=== PATIENT | female | born 1975 | race Caucasian/White ===

== ENCOUNTER 2021-02-28 10:15 | Outpatient (REF) | payer OTHER, SELFPAY ==
[2021-03-02 22:36] LABS: HPV mRNA E6/E7 rflx Not Detected (Not Detected)
== END 2021-02-28 10:16 | disposition home or self-care (01) ==
LOC: HO.LAB 10:15
PROVIDERS: PCP Internal Medicine; Visit Provider Advanced Practice Midwife
DX: Z01.419 Encounter for gynecological examination (general) (routine) without abnormal findings (principal); Z11.51 Encounter for screening for human papillomavirus (HPV)
CPT/HCPCS: 87624; 88142

== ENCOUNTER 2021-03-02 13:34 | Outpatient (REF) | payer OTHER, SELFPAY ==
--- NOTE | 2021-03-03 13:45 | MHC.AU.AHA ---
Adult Audiological Evaluation Date of Visit: 03/02/21 Reason for Appointment: History of childhood-onset asymmetrical mixed hearing loss. Patient arrives today to determine if there has been a change in hearing. Previous Hearing Test Results: From [facility] on 09/17/2017- Moderately-severe/severe mixed hearing loss in the right ear. Profound mixed hearing loss in the left ear. 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 Hearing Instrument History- Left Ear: Hydraulic Boom Operator: Schedulize Model: [employer] Serial Number: [id number] Battery Size: 13 Warranty: 10/17/2020 Loss and Damage Warranty: Dispensed By: [facility] Otoscopy: Right Ear: Dull tympanic membrane Left Ear: Dull tympanic membrane, slight redness Tympanometry: Tympanometry performed due to: To assess integrity of the middle ear system Right Ear: Reduced Middle Ear Compliance (Type As) Left Ear: Normal Middle Ear System (Type A) Hearing Evaluation: Transducer(s) Used: Insert Earphones Method: Conventional Audiometry Stimuli Used: Pure Tones Right Ear: Description of Hearing: Moderately-severe/severe mixed hearing loss Left Ear: Description of Hearing: Profound mixed hearing loss Speech Recognition Threshold (SRT): Method Used: Recorded Lists Stimuli Used: Spondee Words Right Ear: 60 dBHL Left Ear: 90 dBHL Word Discrimination: Method: Recorded Lists Word Lists Used: W-22 Right Ear: 96% at 95 dBHL Left Ear: 56% at 105 dBHL Most Comfortable Level (MCL): Right Ear: 95 dBHL Left Ear: 105 dBHL Comparison: Compared to most recent evaluation: Slight decreases noted in the right ear. High frequencies decreased in the left ear. Recommendations: Audiological re-evaluation in one year. Hearing aid maintenance performed. Patient was reporting significant feedback, which was audible when she arrived to the appointment. [place] were loose. Replaced hooks. Cleaned molds and replaced tubing. Cleaned battery compartments and microphones. Hearing aids are amplifying well after maintenance, and feedback was significantly improved. Hearing aid programming was updated with today's thresholds. Feedback manager of business run. Overall gain in the left ear slightly reduced to prevent feedback. Patient was pleased with the changes. Hearing aid maintenance/follow-up as needed. Diagnosis: Primary Diagnosis: H90.6 Mixed Hearing Loss, Bilateral Secondary Diagnosis: H90.6 Mixed Hearing Loss, Bilateral Signature: Provider: Violet Neff, CCC-A
== END 2021-03-02 13:35 | disposition home or self-care (01) ==
LOC: HO.SH 13:34
PROVIDERS: Visit Provider Internal Medicine
DX: H90.6 Mixed conductive and sensorineural hearing loss, bilateral (principal)
CPT/HCPCS: 92557; 92567

== ENCOUNTER 2021-05-01 14:06 | Outpatient (REF) | payer OTHER, SELFPAY ==
--- NOTE | ~2021-05-01 | MM_ITS ---
EXAMINATION: MM SCREENING DIGITAL BREAST TOMOSYNTHESIS, BILATERAL CLINICAL INFORMATION: Screening. Asymptomatic. The lifetime risk of breast cancer based on the Tyrer-Cuzick Model is 18%. COMPARISON: Outside mammography: 09/08/2018, 05/28/2016, 05/02/2016 ([facility]). TECHNIQUE: Digital breast tomosynthesis is performed in both the craniocaudal and mediolateral oblique views along with computer-aided detection (CAD). Synthesized 2D images are generated from the tomosynthesis. Additional right MLO view is provided. FINDINGS: The breasts are heterogeneously dense, which may obscure small masses (ACR BI-RADS breast composition Category c). Parenchymal pattern is similar to prior studies. There is no developing density or interval mass or architectural abnormality. Again, there is biopsy clip marker mid upper outer right breast. There are some coarse and a few punctate calcifications again seen anterior central 3:00 right breast. The axilla and skin contours are unremarkable. No significant changes. MM/MM tomosynthesis screening BI IMPRESSION: No mammographic evidence of malignancy. ASSESSMENT: BI-RADS 2: Benign RECOMMENDATION: Routine annual mammography screening. This patient's information was entered into a reminder system with a target due date for their next mammogram.
== END 2021-05-01 14:07 | disposition home or self-care (01) ==
LOC: HO.MAMMO 14:06
PROVIDERS: PCP Internal Medicine; Visit Provider Obstetrics & Gynecology
DX: Z12.31 Encounter for screening mammogram for malignant neoplasm of breast (principal)
CPT/HCPCS: 77063; 77067

== ENCOUNTER 2021-05-16 10:46 | Outpatient (REF) | payer OTHER, SELFPAY ==
[2021-05-19 00:36] LABS: HPV mRNA E6/E7 rflx Not Detected (Not Detected)
== END 2021-05-16 10:47 | disposition home or self-care (01) ==
LOC: HO.LAB 10:46
PROVIDERS: PCP Internal Medicine; Visit Provider Advanced Practice Midwife
DX: Z12.4 Encounter for screening for malignant neoplasm of cervix (principal); Z11.51 Encounter for screening for human papillomavirus (HPV); R87.615 Unsatisfactory cytologic smear of cervix
CPT/HCPCS: 87624; 88142; 99212

== ENCOUNTER 2022-05-02 14:02 | Outpatient (REF) | payer OTHER, SELFPAY ==
--- NOTE | ~2022-05-02 | MM_ITS ---
EXAMINATION: MM SCREENING DIGITAL BREAST TOMOSYNTHESIS, BILATERAL CLINICAL INFORMATION: Screening. Asymptomatic. The lifetime risk of breast cancer based on the Tyrer-Cuzick Model is 17%. COMPARISON: Mammography: 05/01/2021; outside mammography 09/08/2018, 05/02/2016 ([facility]) TECHNIQUE: Digital breast tomosynthesis is performed in both the craniocaudal and mediolateral oblique views along with computer-aided detection (CAD). Synthesized 2D images are generated from the tomosynthesis. FINDINGS: The breasts are heterogeneously dense, which may obscure small masses (ACR BI-RADS breast composition Category c). There are no significant masses, abnormal calcifications, or other abnormalities. Parenchymal pattern is similar to prior studies. There is no developing density or architectural abnormality. There is a biopsy clip marker upper outer quadrant right breast again noted. Calcifications anterior central 3:00 right breast are similar to prior exams. The axilla and skin contours are unremarkable. No significant changes. MM/MM tomosynthesis screening BI IMPRESSION: No mammographic evidence of malignancy. ASSESSMENT: BI-RADS 2: Benign RECOMMENDATION: Routine annual mammography screening. This patient's information was entered into a reminder system with a target due date for their next mammogram.
== END 2022-05-02 14:03 | disposition home or self-care (01) ==
LOC: HO.MAMMO 14:02
PROVIDERS: PCP Internal Medicine; Visit Provider Obstetrics & Gynecology
DX: Z12.31 Encounter for screening mammogram for malignant neoplasm of breast (principal)
CPT/HCPCS: 77063; 77067

== ENCOUNTER 2023-03-08 10:32 | Outpatient (AMB) | payer OTHER, SELFPAY ==
--- NOTE | 2023-03-08 10:36 | MHC.OFFVIS ---
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 Scribed for YOKASTA Davis by Caty Tapia medical physics professor, on 03/08/2023 at 10:51 am EST. Store Operations Associate Required: No Information Interpreted: non-clinical & clinical Optical Engineering Manager: Optical Engineering Manager Present (Keshia LEVY) Accompanied by: Self / Same As Patient Allergies codeine Allergy (Intermediate, Verified 03/08/23 10:41) Vomiting fentanyl Allergy (Intermediate, Verified 03/08/23 10:41) Vomiting Sulfa (Sulfonamide Antibiotics) Allergy (Intermediate, Verified 03/08/23 10:41) Shakiness Is last menstrual period known: Yes Last menstrual period: 02/20/23 HPI HPI Comments History of Present Illness Details She is a premenopausal woman presenting for annual exam. Reports painful menses and itching under breast. She admits to eating healthy, adding more fiber with fresh vegtables this summer, and tries to stay active with exercise in her home. Not sexually active. Denies vaginal itching and irritation. Denies family hx of colon cancer. Has not done BRCA testing and is interested in testing. Last pap smear 05/17/21. Last mammogram 02/20/23. 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 Sexual orientation: Straight/Heterosexual Gender identity: Female Female Reproductive History Menstrual Age of Menarche: 11 Duration of menses: 6-7 days Date of last menstrual period: 02/20/23 Total pregnancies: 0 Date of last pap smear: 05/17/21 Date of Mammogram: 05/02/22 Physical Exam Vital Signs: Last Vital Signs BP 110/62 03/08/23 10:40 BMI result Body Mass Index 20.8 Const General: cooperative, healthy appearing, no acute distress, well developed and alert Orientation/consciousness: patient oriented x3 HEENT Head: Yes normal to inspection Eyes General: appearance normal, both eyes and all related structures Neck Neck: Yes normal visual inspection Thyroid: Thyroid normal Chest Other: bilateral fungal rash under pendulous breast Chest palpation & inspection: normal inspection of the chest Breast/axilla inspection: normal inspection of the breasts (no puckering, dimpling, peau de orange, retraction, discharge, masses) Breast/axilla palpation: normal palpation of the breasts Resp Effort & Inspection: normal respiratory effort GI Inspection: Yes normal to inspection Palpation (GI): Soft to palpation (to palpation) and Other GI palpation findings present (rounded, bloated) Rectal Exam - Female: deferred Other: thin speculum required General: Yes bladder normal to inspection External Female Exam: normal external appearance and normal appearance of the urethra Speculum Exam - Vagina: normal appearance of the vagina, normal palpation, normal vaginal discharge and other (narrow introitus) Speculum Exam - Cervix: normal appearance of the cervix and normal palpation Bimanual exam- vagina & uterus: normal palpation and normal palpation Bimanual Exam- Adnexa, other: normal adnexae and no masses Skin General skin exam: no rashes or lesions noted Neuro General: patient oriented x3 Cognition (Neuro): normal cognition Extrem General: Yes normal to inspection Psych Attitude: cooperative Thought process: Normal thought process present Assessment & Plan Assessment & Plan (1) Encounter for annual routine gynecological examination: Code(s): Z01.419 - Encounter for gynecological examination (general) (routine) without abnormal findings Plan: Discussed: Current recommendations for pap smears per ASCCP guidelines Breast awareness and periodic self breast exams. Referral for BRCA testing-many family members with cancer, requests testing/information. Maintaining a healthy lifestyle including a well balanced diet and routine exercise. Counseled re: perimenopause vs menopause. Monitor periods, report any unscheduled bleeding, bleeding episodes less than 21 days apart or heavy prolonged menstrual bleeding. All of her questions and concerns were addressed to the best of my ability. RTO in one year for AG. (2) Skin rash: Code(s): R21 - Rash and other nonspecific skin eruption Plan: Keep under breast dry and wear cotton bra. Rx sent to pharmacy. (3) Dysmenorrhea: Code(s): N94.6 - Dysmenorrhea, unspecified Plan: Pelvic US ordered. Follow up via tele visit for results. If experience bloating unusual bleeding or pelvic pain contact office or report to ED. (4) FH: breast cancer: Code(s): Z80.3 - Family history of malignant neoplasm of breast (5) FH: ovarian cancer in first degree relative: Code(s): Z80.41 - Family history of malignant neoplasm of ovary Orders: Orders MM tomosynthesis screening BI Today Z12.31 - Encounter for screening mammogram for malignant neoplasm of breast US pelvic complete Today N94.6 - Dysmenorrhea, unspecified Referrals Genetics Referral Z80.3 - Family history of malignant neoplasm of breast, Z80.41 - Family history of malignant neoplasm of ovary Medications: New clotrimazole-betamethasone 1-0.05 % stop the hydrocortisone use, then start this med as directed 1 appl topical BID 45 grams 0RF itching 7 days Coding Level of Care Code Est Pt Prev Care 40-64y(77986) Diagnoses Encounter for annual routine gynecological examination Z01.419 Skin rash R21 Dysmenorrhea N94.6 FH: breast cancer Z80.3 FH: ovarian cancer in first degree relative Z80.41
[2023-03-08 10:40] VITALS: BP 110/62; BMI 20.8
== END 2023-03-08 11:21 | disposition home or self-care (01) ==
LOC: HO.HWS 10:32
PROVIDERS: PCP Internal Medicine; Visit Provider Advanced Practice Midwife
DX: Z01.419 Encounter for gynecological examination (general) (routine) without abnormal findings (principal); R21 Rash and other nonspecific skin eruption; N94.6 Dysmenorrhea, unspecified; Z80.3 Family history of malignant neoplasm of breast; Z80.41 Family history of malignant neoplasm of ovary
CPT/HCPCS: 99396

== ENCOUNTER → 2023-03-08 10:32 | Outpatient (BNVA) | payer OTHER, SELFPAY | PROVIDERS: PCP Internal Medicine; Visit Provider Advanced Practice Midwife ==

== ENCOUNTER 2023-03-15 10:38 | Outpatient (REF) | payer OTHER, SELFPAY ==
--- NOTE | ~2023-03-15 | US_ITS ---
EXAMINATION: US PELVIS CLINICAL INFORMATION: Dysmenorrhea, last menstrual period 03/14/2023. COMPARISON: None available. TECHNIQUE: Ultrasound of the pelvis is performed using both transabdominal and transvaginal transducers along with Doppler. Patient declined transvaginal ultrasound imaging. Transvaginal ultrasound images should be considered for better visualization based on the clinical assessment. FINDINGS: Uterus: The uterus is anteverted and measures 5.9 x 2.8 x 5.2 cm. No discrete fibroids are identified. Uterus is heterogeneous. Limited visualization. The double wall endometrial thickness is 0.3 mm. No significant free fluid. Right ovary measures 3.0 x 1.9 x 2.5 cm, volume 7.4 mL. Left ovary measures 3.1 x 1.4 x 2.1 cm, volume 4.8 mL. Visualization of bilateral ovaries is limited. US/US pelvic complete IMPRESSION: 1. Heterogeneous uterus. No discrete fibroids. 2. Endometrial thickness is 0.3 cm. 3. Bilateral ovaries are grossly unremarkable. 4. Limited visualization. Patient declined transvaginal ultrasound imaging. Transvaginal ultrasound images should be considered for better visualization based on the clinical assessment.
== END 2023-03-15 10:39 | disposition home or self-care (01) ==
LOC: HO.US 10:38
PROVIDERS: PCP Internal Medicine; Visit Provider Advanced Practice Midwife
DX: N94.6 Dysmenorrhea, unspecified (principal)
CPT/HCPCS: 76856

== ENCOUNTER 2023-03-20 12:37 | Outpatient (AMB) | payer OTHER, SELFPAY ==
--- NOTE | 2023-03-20 12:38 | A.OFFVIS_ITS ---
Intake Intake Visit Reasons: Tv ultra sound follow up Intake Note: Home # [phone] The patient agreed to use of a health care / medical job titles during this encounter. Scribed for YOKASTA Davis by Caty Tapia health care / medical job titles, on 03/20/2023 at 12:50 pm EST. Allergies codeine Allergy (Intermediate, Verified 03/20/23 12:38) Vomiting fentanyl Allergy (Intermediate, Verified 03/20/23 12:38) Vomiting Sulfa (Sulfonamide Antibiotics) Allergy (Intermediate, Verified 03/20/23 12:38) Shakiness HPI HPI Comments History of Present Illness Details Telehealth visit 12:50 pm -12:54 pm. Phone Call due to Covid-19 Pandemic. She presents via phone to discuss US results regarding dysmenorrhea. She has no questions or concerns today. 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 US PELVIS CLINICAL INFORMATION:? Dysmenorrhea, last menstrual period 03/14/2023. COMPARISON: None available. TECHNIQUE: Ultrasound of the pelvis is performed using both transabdominal and transvaginal transducers along with Doppler. Patient declined transvaginal ultrasound imaging. Transvaginal ultrasound images should be considered for better visualization based on the clinical assessment. FINDINGS: Uterus: The uterus is anteverted and measures 5.9 x 2.8 x 5.2 cm.? No discrete fibroids are identified. Uterus is heterogeneous. Limited visualization. The double wall endometrial thickness is 0.3 mm.? No significant free fluid. Right ovary measures 3.0 x 1.9 x 2.5 cm, volume 7.4 mL. Left ovary measures 3.1 x 1.4 x 2.1 cm, volume 4.8 mL. Visualization of bilateral ovaries is limited. US/US pelvic complete IMPRESSION: ? 1. Heterogeneous uterus. No discrete fibroids. ? 2. Endometrial thickness is 0.3 cm. ? 3. Bilateral ovaries are grossly unremarkable. ? 4. Limited visualization. Patient declined transvaginal ultrasound imaging. Transvaginal ultrasound images should be considered for better visualization based on the clinical assessment. Assessment & Plan Assessment & Plan (1) Encounter to discuss test results: Code(s): Z71.2 - Person consulting for explanation of examination or test findings Plan: Discussed: Us findings of: 1. Heterogeneous uterus. No discrete fibroids. 2. Endometrial thickness is 0.3 cm. 3. Bilateral ovaries are grossly unremarkable. 4. Limited visualization. Patient declined transvaginal ultrasound imaging. Transvaginal ultrasound images should be considered for better. visualization based on the clinical assessment. All of her questions and concerns were addressed to the best of my ability and shared decision making. She is agreeable to plan of care. RTO PRN. (2) Dysmenorrhea: Code(s): N94.6 - Dysmenorrhea, unspecified Plan: Advised to monitor menses, use heating pad and ibuprofen with food for pain management. Telehealth Telehealth Location of provider rendering services: practice address Location of patient: address on file Patient Identification confirmed using: Name, : Yes Telehealth method: voice only Patient verbally consented to treatment: Yes Patient verbally consented to billing insurance company: Yes Patient informed of any privacy concerns related to visit: Yes Coding Level of Care Code Tele Est Pt Level 3 (94985) Diagnoses Encounter to discuss test results Z71.2 Dysmenorrhea N94.6
== END 2023-03-20 14:57 | disposition home or self-care (01) ==
LOC: HO.HWS 12:37
PROVIDERS: PCP Internal Medicine; Visit Provider Advanced Practice Midwife
DX: Z71.2 Person consulting for explanation of examination or test findings (principal); N94.6 Dysmenorrhea, unspecified
CPT/HCPCS: 99213

== ENCOUNTER → 2023-03-20 12:37 | Outpatient (BNVA) | payer OTHER, SELFPAY | PROVIDERS: PCP Internal Medicine; Visit Provider Advanced Practice Midwife ==

== ENCOUNTER 2023-04-04 11:32 | Outpatient (AMB) | payer OTHER, SELFPAY ==
--- NOTE | 2023-04-04 11:34 | MHC.OFFVIS ---
Intake Intake Visit Reasons: Family history of malignant neoplasm of breast Pediatric Dermatologist Required: No Accompanied by: Self / Same As Patient Allergies codeine Allergy (Intermediate, Verified 04/04/23 11:38) Vomiting fentanyl Allergy (Intermediate, Verified 04/04/23 11:38) Vomiting Sulfa (Sulfonamide Antibiotics) Allergy (Intermediate, Verified 04/04/23 11:38) Shakiness Medication List - Last Reconciled 04/04/23 by Praveen Reddy MD clotrimazole-betamethasone 1-0.05 % 1 appl topical BID 7 days dextroamphetamine-amphetamine 10 mg 1 tab PO DAILY fluoxetine 10 mg PO DAILY ketoconazole 2% appl topical BID PRN ketoconazole 2% topical 2XW HPI Family history of malignant neoplasm of breast HPI Details 47 year old female referred for a family history of ovarian cancer. She states that her mother had ovarian cancer at age of 56. She does not know of any other family member with Cancer. She had menarche at age of 10. She says she still has her periods. She has never been . [facility] Medical History (Updated 04/04/23 @ 11:50 by Praveen Reddy MD) Family history of ovarian cancer Family history of malignant neoplasm of breast Dysmenorrhea Skin rash ADD (attention deficit disorder) Hearing loss History of anxiety Seborrheic dermatitis Surgical History History of mandibular surgery History of placement of ear tubes Family History Mother Ovarian cancer Maternal Aunt History of breast cancer Family/Other History of breast cancer Social History Household Members: None Housing: House Alcohol intake: current Alcohol intake frequency: holidays/special occasions only Patient Tobacco Use Status: Never used Tobacco Current occupational status: disabled 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 Sexual orientation: Straight/Heterosexual Gender identity: Female Female Reproductive History Menstrual Age of Menarche: 11 Review of Systems Const Denies chills and Denies fever(s) Card Denies chest pain, Denies dyspnea and Denies dyspnea on exertion Resp Denies cough, Denies dyspnea and Denies dyspnea on exertion GI Denies hematochezia and Denies change in bowel habits Denies hematuria Musc Denies back pain and Denies limited range of motion Neuro Denies focal weakness and Denies convulsions Psych Denies depression and Denies mood swings Physical Exam Const General: comfortable and no acute distress Orientation/consciousness: patient oriented x3 Neck Neck: Yes no lymphadenopathy Resp Auscultation: clear to auscultation bilaterally Cardio Rhythm: regular rhythm GI Palpation (GI): Soft to palpation, nontender and no guarding Neuro General: patient oriented x3 Assessment & Plan Assessment & Plan (1) Family history of ovarian cancer: Code(s): Z80.41 - Family history of malignant neoplasm of ovary Plan: Her mother had ovarian cancer at age of 56. I explained to the patient the option of proceeding with genetic testing because of this family history. I told her about implications of this test to herself and her family. She says she isn't interested so we will schedule her for genetic testing and genetic counseling. Coding Level of Care Code New Pt Level 3 (86716) Diagnoses Family history of ovarian cancer Z80.41
== END 2023-04-04 12:14 | disposition home or self-care (01) ==
PROVIDERS: PCP Internal Medicine; Referring Provider Advanced Practice Midwife; Visit Provider Surgery
DX: Z80.41 Family history of malignant neoplasm of ovary (principal)
CPT/HCPCS: 99203

== ENCOUNTER → 2023-04-04 11:32 | Outpatient (BNVA) | payer OTHER, SELFPAY | PROVIDERS: PCP Internal Medicine; Referring Provider Advanced Practice Midwife; Visit Provider Surgery | DX: Z80.41 Family history of malignant neoplasm of ovary (principal) | CPT/HCPCS: 99202 ==

== ENCOUNTER → 2023-05-08 11:30 | Outpatient (BNV) | payer OTHER, SELFPAY | PROVIDERS: Absent Provider Advanced Practice Midwife; Visit Provider Radiology Diagnostic Radiology | DX: Z12.31 Encounter for screening mammogram for malignant neoplasm of breast (principal) | CPT/HCPCS: 77063; 77067 ==

== ENCOUNTER 2023-05-08 11:33 | Outpatient (REF) | payer OTHER, SELFPAY ==
--- NOTE | ~2023-05-08 | MM_ITS ---
EXAMINATION: MM SCREENING DIGITAL BREAST TOMOSYNTHESIS, BILATERAL CLINICAL INFORMATION: Screening. Asymptomatic. COMPARISON: Mammography: This study is compared with prior exams dating back to 2016. TECHNIQUE: Digital breast tomosynthesis is performed in both the craniocaudal and mediolateral oblique views along with computer-aided detection (CAD). Synthesized 2D images are generated from the tomosynthesis. FINDINGS: The breasts are heterogeneously dense, which may obscure small masses (ACR BI-RADS breast composition Category c). There are grouped calcifications in the medial aspect of the right breast. These occur in the posterior nipple line at the breasts anterior third in the MLO projection. Additional mammographic imaging magnification is advised. There is a tissue marker present in the upper outer quadrant of the right breast from prior benign percutaneous biopsy. In the left breast, there are no significant masses, abnormal calcifications, or other abnormalities. MM/MM tomosynthesis screening BI IMPRESSION: Grouped calcifications in the right breast warrant additional mammographic imaging magnification. No mammographic signs of malignancy left breast. ASSESSMENT: BI-RADS BI-RADS 0 - Incomplete: Needs additional Imaging. RECOMMENDATION: Additional views of the right breast . Radiology department staff will contact the patient for additional imaging. 1 year F/U This examination should not preclude the clinical evaluation of a suspicious palpable abnormality. This patient's information was entered into a reminder system with a target due date for their next mammogram.
== END 2023-05-08 11:34 | disposition home or self-care (01) ==
LOC: HO.MAMMO 11:33
PROVIDERS: Absent Provider Advanced Practice Midwife; Visit Provider Internal Medicine
DX: Z12.31 Encounter for screening mammogram for malignant neoplasm of breast (principal)
CPT/HCPCS: 77063; 77067

== ENCOUNTER 2023-05-20 11:21 | Outpatient (AMB) | payer OTHER, SELFPAY ==
--- NOTE | 2023-05-20 11:22 | MHC.OFFVIS ---
Intake Vital Signs 05/20/23 11:26 Height 5 ft 1 in Weight 107 lb BMI 20.2 BP 127/73 Blood Pressure Location Rt brachial Position Sitting Pulse 130 H Intake Visit Reasons: genetic test results *HERE* Intake Note: This patient presents for a follow-up for genetic test results. Patient c/o; reports no changes. Emergency Room Doctor Required: No Accompanied by: Aunt Allergies codeine Allergy (Intermediate, Verified 05/20/23 11:27) Vomiting fentanyl Allergy (Intermediate, Verified 05/20/23 11:27) Vomiting Sulfa (Sulfonamide Antibiotics) Allergy (Intermediate, Verified 05/20/23 11:27) Shakiness Medication List - Last Reconciled 05/20/23 by Praveen Reddy MD clotrimazole-betamethasone 1-0.05 % 1 appl topical BID 7 days dextroamphetamine-amphetamine 10 mg 1 tab PO DAILY fluoxetine 10 mg PO DAILY ketoconazole 2% appl topical BID PRN ketoconazole 2% topical 2XW HPI genetic test results *HERE* HPI Details She is here to discuss goals of her myriad genetic testing. She had multiple family members with breast cancer and a mother with ovarian cancer. She has no new complaints at this time. [facility] Medical History Family history of ovarian cancer Family history of malignant neoplasm of breast Dysmenorrhea Skin rash ADD (attention deficit disorder) Hearing loss History of anxiety Seborrheic dermatitis Surgical History History of mandibular surgery History of placement of ear tubes Family History Mother Ovarian cancer Maternal Aunt History of breast cancer Family/Other History of breast cancer Social History Household Members: None Housing: House Alcohol intake: current Alcohol intake frequency: holidays/special occasions only Patient Tobacco Use Status: Never used Tobacco Current occupational status: disabled 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 Sexual orientation: Straight/Heterosexual Gender identity: Female Female Reproductive History Menstrual Age of Menarche: 11 Review of Systems Const Denies chills and Denies fever(s) Card Denies chest pain, Denies dyspnea and Denies dyspnea on exertion Resp Denies cough, Denies dyspnea and Denies dyspnea on exertion GI Denies hematochezia and Denies change in bowel habits Denies hematuria Musc Denies back pain and Denies limited range of motion Neuro Denies focal weakness and Denies convulsions Psych Denies depression and Denies mood swings Physical Exam Const General: comfortable and no acute distress Resp Effort & Inspection: normal respiratory effort Cardio Rate: regular rate GI Palpation (GI): Soft to palpation Assessment & Plan Assessment & Plan (1) Family history of ovarian cancer: Code(s): Z80.41 - Family history of malignant neoplasm of ovary Plan: Had undergone genetic testing with [employer] because of her family history of ovarian cancer as well as breast cancer. Fortunately, this does not show any significant mutation. However, because of her family history, her breast cancer risk score for lifetime risk at 30.4 % because of this elevated lifetime risk, it is recommended that she undergoes breast MRI with contrast as well annually. I am going to schedule this for October,. I will see her in the office thereafter She had a mammogram weeks ago which has not been officially read yet. I am going to review it once the final report is back. (2) Family history of malignant neoplasm of breast: Code(s): Z80.3 - Family history of malignant neoplasm of breast Orders: Orders MR breast BI wo/w con 6 Months Z80.3 - Family history of malignant neoplasm of breast, Z80.41 - Family history of malignant neoplasm of ovary Coding Level of Care Code Est Pt Level 3 (05826) Diagnoses Family history of ovarian cancer Z80.41 Family history of malignant neoplasm of breast Z80.3
[2023-05-20 11:26] VITALS: BP 127/73; PULSE 130; BMI 20.2
== END 2023-05-20 11:34 | disposition home or self-care (01) ==
PROVIDERS: PCP Internal Medicine; Visit Provider Surgery
DX: Z80.41 Family history of malignant neoplasm of ovary (principal); Z80.3 Family history of malignant neoplasm of breast
CPT/HCPCS: 99213

== ENCOUNTER → 2023-05-20 11:21 | Outpatient (BNVA) | payer OTHER, SELFPAY | PROVIDERS: PCP Internal Medicine; Visit Provider Surgery | DX: Z71.2 Person consulting for explanation of examination or test findings (principal); Z80.41 Family history of malignant neoplasm of ovary; Z80.3 Family history of malignant neoplasm of breast | CPT/HCPCS: 99212 ==

== ENCOUNTER → 2023-08-05 10:30 | Outpatient (BNV) | payer OTHER, SELFPAY | PROVIDERS: PCP Internal Medicine; Visit Provider Radiology Diagnostic Radiology | DX: R92.1 Mammographic calcification found on diagnostic imaging of breast (principal) | CPT/HCPCS: 77065 ==

== ENCOUNTER 2023-08-05 10:31 | Outpatient (REF) | payer OTHER, SELFPAY | END 2023-08-05 10:32 | disposition home or self-care (01) | LOC: HO.MAMMO 10:31 | PROVIDERS: PCP Internal Medicine; Visit Provider Advanced Practice Midwife | DX: R92.1 Mammographic calcification found on diagnostic imaging of breast (principal) | CPT/HCPCS: 77065 ==

== ENCOUNTER 2023-08-12 08:31 | Outpatient (AMB) | payer OTHER, SELFPAY ==
--- NOTE | 2023-08-12 08:39 | A.OFFVIS_ITS ---
Intake Vital Signs 08/12/23 08:41 Height 5 ft 1 in Weight 107 lb 6 oz BMI 20.3 BP 139/75 Blood Pressure Location Lt brachial Position Sitting Pulse 85 Intake Visit Reasons: Rt breast calcification Intake Note: Patient is seen in office for biopsy consult following right breast calcifications. Pt c/o: denies any lump, bump, discharge, redness or swelling, no family hx of breast cancer Perianesthesia Manager Required: No Accompanied by: Self / Same As Patient Allergies codeine Allergy (Intermediate, Verified 08/12/23 08:41) Vomiting fentanyl Allergy (Intermediate, Verified 08/12/23 08:41) Vomiting Sulfa (Sulfonamide Antibiotics) Allergy (Intermediate, Verified 08/12/23 08:41) Shakiness Medication List - Last Reconciled 08/12/23 by Praveen Reddy MD clotrimazole-betamethasone 1-0.05 % 1 appl topical BID 7 days dextroamphetamine-amphetamine 10 mg 1 tab PO DAILY fluoxetine 10 mg PO DAILY ketoconazole 2% appl topical BID PRN ketoconazole 2% topical 2XW HPI Rt breast calcification HPI Details 47-year-old female referred for right br east calcifications. She had a screening mammogram last April, showing this grouped calcifications on the right breast. She was brought in for diagnostic mammogram because of this which was done last week. These suspicious calcifications in the right breast were seen again on the 2 anterior 1/3 just superior and inferior to the nipple line. A stereotactic biopsy had therefore been recommended by the radiologist. She otherwise denies any palpable breast masses or any nipple or skin changes. Her menarche was at age of 10. She had never been . She still has her periods. She denies a family history of breast cancer but her mother had a history of ovarian cancer. The patient had Myriad testing last year which did not show any mutations.. She did have a biopsy of a right breast mass about 12 years ago which was benign. [facility] Medical History (Updated 08/12/23 @ 07:26 by Praveen Reddy MD) Breast calcification, right Family history of ovarian cancer Family history of malignant neoplasm of breast Dysmenorrhea Skin rash ADD (attention deficit disorder) Hearing loss History of anxiety Seborrheic dermatitis Surgical History History of mandibular surgery History of placement of ear tubes Family History Mother Ovarian cancer Maternal Aunt History of breast cancer Family/Other History of breast cancer Social History Household Members: None Housing: House Alcohol intake: current Alcohol intake frequency: holidays/special occasions only Patient Tobacco Use Status: Never used Tobacco Current occupational status: disabled 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 Sexual orientation: Straight/Heterosexual Gender identity: Female Female Reproductive History Menstrual Age of Menarche: 11 Review of Systems Const Denies chills and Denies fever(s) Card Denies chest pain, Denies dyspnea and Denies dyspnea on exertion Resp Denies cough, Denies dyspnea and Denies dyspnea on exertion GI Denies hematochezia and Denies change in bowel habits Denies hematuria Musc Denies back pain and Denies limited range of motion Neuro Denies focal weakness and Denies convulsions Psych Denies depression and Denies mood swings Physical Exam Vital Signs: Last Vital Signs Pulse 85 08/12/23 08:41 BP 139/75 08/12/23 08:41 BMI result Body Mass Index 20.3 Const General: comfortable and no acute distress Orientation/consciousness: patient oriented x3 Neck Neck: Yes no lymphadenopathy Chest Other: No palpable breast masses, no nipple or skin changes, no axillary lymphadenopathy. Resp Auscultation: clear to auscultation bilaterally Cardio Rhythm: regular rhythm GI Palpation (GI): Soft to palpation, nontender and no guarding Neuro General: patient oriented x3 Assessment & Plan Assessment & Plan (1) Breast calcification, right: Code(s): R92.1 - Mammographic calcification found on diagnostic imaging of breast Plan: A stereotactic biopsy had been recommended by the radiologist in view of this grouped calcifications on the right breast as described above. I will see her again in the office to discuss the path report next week. She seems to understand the plan well and is comfortable with this. Orders: Orders MM stereotactic biopsy RT Today R92.1 - Mammographic calcification found on diagnostic imaging of breast Coding Level of Care Code Est Pt Level 3 (59955) Diagnoses Breast calcification, right R92.1
[2023-08-12 08:41] VITALS: BP 139/75; PULSE 85; BMI 20.3
== END 2023-08-12 08:54 | disposition home or self-care (01) ==
PROVIDERS: PCP Internal Medicine; Visit Provider Surgery
DX: R92.1 Mammographic calcification found on diagnostic imaging of breast (principal)
CPT/HCPCS: 99213

== ENCOUNTER 2023-08-12 09:28 | Outpatient (REF) | payer OTHER, SELFPAY ==
--- NOTE | ~2023-08-12 | MM_ITS ---
EXAMINATION: STEREOTACTIC TOMOSYNTHESIS-GUIDED VACUUM-ASSISTED BREAST BIOPSY, RIGHT SPECIMEN RADIOGRAPH, RIGHT POST PROCEDURE DIGITAL MAMMOGRAM, RIGHT CLINICAL INFORMATION: Indeterminate grouped calcifications right breast upper inner quadrant, mid to anterior one third, seen on screening exam recommended for stereotactic biopsy.. COMPARISON: 08/05/2023, 05/08/2023. TECHNIQUE/PROCEDURE: Informed consent was obtained from the patient after discussion of the benefits, risks, and alternatives to biopsy today. Patient appeared to understand. Gave opportunity for questions. Patient signed consent form. BIOPSY TABLE: [employer] Prone Biopsy System. LESION: Calcifications. LOCAL ANESTHESIA: 4 mL 1% lidocaine; 6 mL 1% lidocaine with epinephrine. DERMATOTOMY: Single skin jacinda dermatotomy performed. NEEDLE: [employer]5iva 9-gauge vacuum assisted core biopsy device. APPROACH: craniocaudal. TARGETING: Combination of digital breast tomosynthesis and stereotactic digital mammography used for targeting. CORES: 8. CLIP: [employer] Buckle-shaped marker. SPECIMEN RADIOGRAPH: Specimen radiograph is taken in separate room using digital mammography. The index calcifications are in the excised cores. POST PROCEDURE UNILATERAL DIGITAL MAMMOGRAM: The post biopsy mammogram is performed in separate room using separate digital mammography equipment from the biopsy procedure. CC and ML views are obtained. The breasts are heterogeneously dense, which may obscure small masses (breast composition category: c). The clip marker is in accurate position. The calcifications are markedly decreased at the biopsy site. No gross hematoma. The patient tolerated the procedure well. No immediate complications. Home instructions reviewed with the patient. Final pathology results are pending. MM/MM stereotactic biopsy RT IMPRESSION: 1. Digital tomosynthesis-guided core biopsy right breast grouped calcifications with clip placement. 2. Specimen radiograph taken and post procedure mammogram. There is satisfactory and accurate positioning of the biopsy clip. 3. Final pathology results pending. An addendum report will be issued.
[2023-08-12] MEDS: Lidocaine HCl 1 % 20 ML VIAL 4 ML SUBCUT (11:04)
[2023-08-12] MEDS: Lidocaine HCl 1%/Epi 1:100,000 10 ML VIAL 16 ML SUBCUT (11:05)
[2023-08-12] MEDS: Sodium Bicarbonate 8.4% 50 MEQ/50 ML VIAL SUBCUT (11:09)
== END 2023-08-12 09:29 | disposition home or self-care (01) ==
LOC: HO.MAMMO 09:28
PROVIDERS: PCP Internal Medicine; Visit Provider Surgery
DX: R92.1 Mammographic calcification found on diagnostic imaging of breast (principal)
CPT/HCPCS: 19081; 88305; 88342; 88360; 99212; A4648

== ENCOUNTER → 2023-08-12 10:00 | Outpatient (BNV) | payer OTHER, SELFPAY | PROVIDERS: PCP Internal Medicine; Visit Provider Radiology Diagnostic Radiology | DX: D05.11 Intraductal carcinoma in situ of right breast (principal) | CPT/HCPCS: 19081 ==

== ENCOUNTER 2023-08-21 14:13 | Outpatient (AMB) | payer OTHER, SELFPAY ==
--- NOTE | 2023-08-21 14:23 | A.OFFVIS_ITS ---
Intake Vital Signs 08/21/23 14:30 Height 5 ft 1 in Weight 107 lb 5.983 oz BMI 20.3 BP 147/71 H Blood Pressure Location Rt brachial Position Sitting Pulse 98 Intake Visit Reasons: bx results Rt breast calcification Intake Note: This patient presents for an assessment for breast biopsy results. Patient c/o; reports no changes Regional Service Manager Required: No Accompanied by: Self / Same As Patient Allergies codeine Allergy (Intermediate, Verified 08/21/23 14:31) Vomiting fentanyl Allergy (Intermediate, Verified 08/21/23 14:31) Vomiting Sulfa (Sulfonamide Antibiotics) Allergy (Intermediate, Verified 08/21/23 14:31) Shakiness Medication List - Last Reconciled 08/21/23 by Praveen Reddy MD clotrimazole-betamethasone 1-0.05 % 1 appl topical BID 7 days dextroamphetamine-amphetamine 10 mg 1 tab PO DAILY fluoxetine 10 mg PO DAILY ketoconazole 2% appl topical BID PRN ketoconazole 2% topical 2XW HPI bx results Rt breast calcification HPI Details 47-year-old female here to discuss her p ath report . She had undergone stereotactic biopsy for right breast calcifications last week. She tolerated procedure well. She does state that she had a little bit of bruising on the area. She had a screening mammogram last April, showing this grouped calcifications on the right breast. She was brought in for diagnostic mammogram because of this and these suspicious calcifications in the right breast were seen again on the anterior 1/3 just superior and inferior to the nipple line. A stereotactic biopsy was therefore done last week by the radiologist. She otherwise denies any palpable breast masses or any nipple or skin changes. Her menarche was at age of 10. She had never been . She still has her periods. She denies a family history of breast cancer but her mother had a history of ovarian cancer. The patient had Myriad testing last year which did not show any mutations.. She did have a biopsy of a right breast mass about 12 years ago which was benign. COUNTS INCLUDE 234 BEDS AT THE [facility] Medical History (Updated 08/21/23 @ 14:48 by Praveen Reddy MD) DCIS (ductal carcinoma in situ) of breast Breast calcification, right Family history of ovarian cancer Family history of malignant neoplasm of breast Dysmenorrhea Skin rash ADD (attention deficit disorder) Hearing loss History of anxiety Seborrheic dermatitis Surgical History History of mandibular surgery History of placement of ear tubes Family History Mother Ovarian cancer Maternal Aunt History of breast cancer Family/Other History of breast cancer Social History Household Members: None Housing: House Alcohol intake: current Alcohol intake frequency: holidays/special occasions only Patient Tobacco Use Status: Never used Tobacco Current occupational status: disabled Current occupation: [employer] Sexual orientation: Straight/Heterosexual Gender identity: Female Female Reproductive History Menstrual Age of Menarche: 11 Review of Systems Const Denies chills and Denies fever(s) Card Denies chest pain, Denies dyspnea and Denies dyspnea on exertion Resp Denies cough, Denies dyspnea and Denies dyspnea on exertion GI Denies hematochezia and Denies change in bowel habits Denies hematuria Musc Denies back pain and Denies limited range of motion Neuro Denies focal weakness and Denies convulsions Psych Denies depression and Denies mood swings Physical Exam Vital Signs: Last Vital Signs Pulse 98 08/21/23 14:30 BP 147/71 H 08/21/23 14:30 BMI result Body Mass Index 20.3 Const General: comfortable and no acute distress Orientation/consciousness: patient oriented x3 Neck Neck: Yes no lymphadenopathy Chest Other: Mild ecchymosis surrounding the biopsy site on the upper part of right breast Resp Auscultation: clear to auscultation bilaterally Cardio Rhythm: regular rhythm GI Palpation (GI): Soft to palpation, nontender and no guarding Neuro General: patient oriented x3 Assessment & Plan Assessment & Plan (1) DCIS (ductal carcinoma in situ) of breast: Code(s): D05.10 - Intraductal carcinoma in situ of unspecified breast Plan: She had undergone stereotactic biopsy for calcifications on the right breast last week. Unfortunately, her path report shows DCIS, ERPR positive. I explained to her the option of proceeding with lumpectomy with postop radiation, or mastectomy as treatment for DCIS. I discussed the technique of this procedure. I reviewed the risks including but not limited to bleeding, infections, hematoma, as well as the benefits and alternatives She wants to proceed with lumpectomy and understands that she will need postop radiation. I will also refer her to the oncologist for this DCIS. I have discussed the above with her Aunt Prema at [phone]. Orders: Referrals Hematology & Oncology Referral D05.10 - Intraductal carcinoma in situ of unspecified breast Coding Level of Care Code Est Pt Level 4 (29582) Diagnoses DCIS (ductal carcinoma in situ) of breast D05.10
[2023-08-21 14:30] VITALS: BP 147/71; PULSE 98; BMI 20.3
== END 2023-08-21 14:49 | disposition home or self-care (01) ==
PROVIDERS: PCP Internal Medicine; Visit Provider Surgery
DX: D05.10 Intraductal carcinoma in situ of unspecified breast (principal)
CPT/HCPCS: 99214

== ENCOUNTER → 2023-08-21 14:13 | Outpatient (BNVA) | payer OTHER, SELFPAY | PROVIDERS: PCP Internal Medicine; Visit Provider Surgery | DX: D05.10 Intraductal carcinoma in situ of unspecified breast (principal) | CPT/HCPCS: 99212 ==

== ENCOUNTER → 2023-08-26 11:15 | Outpatient (BNV) | payer OTHER, SELFPAY | PROVIDERS: Visit Provider Internal Medicine Medical Oncology | DX: D05.10 Intraductal carcinoma in situ of unspecified breast (principal) | CPT/HCPCS: 99204; 99213 ==

== ENCOUNTER 2023-08-28 08:03 | Outpatient (REF) | payer OTHER, SELFPAY ==
--- NOTE | ~2023-08-28 | MM_ITS ---
EXAMINATION: MM MAMMOGRAM GUIDED RFID LOCALIZATION BREAST, RIGHT CLINICAL INFORMATION: DCIS, grade 1, right breast upper inner quadrant, middle to anterior one third, status post stereotactic biopsy. For localization. COMPARISON: 08/12/2023 stereotactic right breast biopsy. 08/05/2023 magnification views right breast. TECHNIQUE NEEDLE LOC: Proper informed consent is obtained from the patient after discussion of the procedure, potential risks and complications, and alternatives including declining the procedure today. Patient was given an opportunity for questions. The patient appeared to understand. The patient consented to the procedure and signed the consent form. GUIDANCE: Digital mammography. APPROACH: Cranio-caudal. TARGET: Buckle-shaped biopsy clip. ANESTHESIA: carbonated lidocaine 1%: 3 mL. LOCALIZATION SYSTEM: -[employer] LOCallizer Wire-Free Guidance System with 12g needle applicator. -Length: 7 cm. -RADIOFREQUENCY TAG: ID # [id number] DERMATOTOMY: 1 mm skin-jacinda dermatotomy performed. RF Tag ID confirmed with LOCalizer Guidance System prior to placement. The skin was prepped and local anesthesia administered. The needle was accurately positioned and RFID tag deployed. Final images demonstrate the LOCalizer RF tag to reside touching the buckle-shaped biopsy clip in both the CC and ML projections. No definite residual calcifications evident surrounding the clip on these images. The patient tolerated the procedure well and had no immediate complications. Dressing placed and home instructions reviewed. MM/MM needle loc RT IMPRESSION: -Status post right breast RFID localization for DCIS grade 1 inner upper quadrant, mid to anterior one third. -RFID chip is touching the biopsy clip in both views. No definite residual calcifications seen on these limited views. -CC and ML final views with RFID chip deployed labeled for OR reference.
[2023-08-28] MEDS: Lidocaine HCl 1 % 20 ML VIAL 9 ML SUBCUT (09:00)
[2023-08-28] MEDS: Sodium Bicarbonate 8.4% 50 MEQ/50 ML VIAL SUBCUT (09:01)
== END 2023-08-28 08:04 | disposition home or self-care (01) ==
LOC: HO.MAMMO 08:03
PROVIDERS: PCP Internal Medicine; Visit Provider Surgery
DX: D05.11 Intraductal carcinoma in situ of right breast (principal); R92.1 Mammographic calcification found on diagnostic imaging of breast
CPT/HCPCS: 19281; C1819

== ENCOUNTER 2023-09-06 11:12 | Day surgery (SDC) | payer OTHER, SELFPAY ==
[2023-09-04 08:48] VITALS: BMI 20.2
--- NOTE | 2023-09-05 10:11 | P.CONAN_ITS ---
Documented by User: Phoebe Soto NP 09/05/23 10:15 HPI - Anesthesia Eval Consult details Narrative: 47yo F for Right Breast Lumpectomy with [employer]ologic LOCalizer PHMx Mandibular surgery - unable to reach patient by phone for details PMF Active Problems Active Problems: All Active Problems (Updated 08/26/23 @ 11:31 by Gregorio Villegas MD) DCIS (ductal carcinoma in situ) of breast (Acute) Breast calcification, right (Acute) Family history of ovarian cancer (Acute) Family history of malignant neoplasm of breast (Acute) Dysmenorrhea (Acute) Skin rash (Acute) Encounter for repeat Pap smear due to previous insuff cervical cells (Acute) Encounter for annual routine gynecological examination (Acute) Past Medical History Medical History DCIS (ductal carcinoma in situ) of breast Breast calcification, right Family history of ovarian cancer Family history of malignant neoplasm of breast Dysmenorrhea Skin rash ADD (attention deficit disorder) Hearing loss History of anxiety Seborrheic dermatitis Family History Family History Mother Ovarian cancer Maternal Aunt History of breast cancer Family/Other History of breast cancer Surgical History Surgical History History of mandibular surgery History of placement of ear tubes Social History Social History Household Members: None Housing: House Alcohol intake: current Alcohol intake frequency: holidays/special occasions only Patient Tobacco Use Status: Never used Tobacco Are you DNR?: No Advance Directives: No Advance Directives Information Provided: Yes Nutrition Risks: No Nutritional Risk FDLMP: currently menstruate Current occupational status: disabled 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 Sexual orientation: Straight/Heterosexual Gender identity: Female Meds Allergies Allergy/AdvReac Type Severity Reaction Status Date / Time codeine Allergy Intermediate Vomiting Verified 09/06/23 11:41 fentanyl Allergy Intermediate Vomiting Verified 09/06/23 11:41 Sulfa (Sulfonamide Allergy Intermediate Shakiness Verified 09/06/23 11:41 Antibiotics) Home Medications Medication Instructions Recorded Confirmed Last Taken Type dextroamphetamine-amphetamine 10 1 tab PO DAILY 03/02/22 09/06/23 Unknown History mg tablet fluoxetine 10 mg capsule 10 mg PO DAILY 03/02/22 09/06/23 Unknown History ketoconazole 2 % shampoo 2 appl topical 2XW 03/02/22 09/06/23 Unknown History ketoconazole 2 % topical cream 2 appl topical BID 03/02/22 09/06/23 Unknown History emollient combination no.43 0.43 appl topical BID 08/26/23 09/06/23 Unknown History (Promiseb topical cream) Exam Height,Weight and Vital Signs: Height 5 ft 1 in Weight 48.534 kg Pertinent Lab Results Pertinent Lab Results: Laboratory Tests 08/26/23 12:30 WBC 3.7 L Hgb 15.1 Hct 43.5 Plt Count 120 L Sodium 136 Potassium 4.3 Chloride 101 Carbon Dioxide 28 BUN 8 L Creatinine 0.71 Assessment and Plan Assessment Anesthesia Assessment: Chart Reviewed Documented by User: Meseret Morales MD 09/06/23 11:47 PMFSH Past Medical History Medical History DCIS (ductal carcinoma in situ) of breast Breast calcification, right Family history of ovarian cancer Family history of malignant neoplasm of breast Dysmenorrhea Skin rash ADD (attention deficit disorder) Hearing loss History of anxiety Seborrheic dermatitis Family History Family History Mother Ovarian cancer Maternal Aunt History of breast cancer Family/Other History of breast cancer Family history of problems with anesthesia: No Surgical History Surgical History History of mandibular surgery History of placement of ear tubes History of Problems with Anesthesia: No Social History Social History Household Members: None Housing: House Alcohol intake: current Alcohol intake frequency: holidays/special occasions only Patient Tobacco Use Status: Never used Tobacco Are you DNR?: No Advance Directives: No Advance Directives Information Provided: Yes Nutrition Risks: No Nutritional Risk FDLMP: currently menstruate Current occupational status: disabled 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 Sexual orientation: Straight/Heterosexual Gender identity: Female Meds Allergies Allergy/AdvReac Type Severity Reaction Status Date / Time codeine Allergy Intermediate Vomiting Verified 09/06/23 11:41 fentanyl Allergy Intermediate Vomiting Verified 09/06/23 11:41 Sulfa (Sulfonamide Allergy Intermediate Shakiness Verified 09/06/23 11:41 Antibiotics) Home Medications Medication Instructions Recorded Confirmed Last Taken Type dextroamphetamine-amphetamine 10 1 tab PO DAILY 03/02/22 09/06/23 Unknown History mg tablet fluoxetine 10 mg capsule 10 mg PO DAILY 03/02/22 09/06/23 Unknown History ketoconazole 2 % shampoo 2 appl topical 2XW 03/02/22 09/06/23 Unknown History ketoconazole 2 % topical cream 2 appl topical BID 03/02/22 09/06/23 Unknown History emollient combination no.43 0.43 appl topical BID 08/26/23 09/06/23 Unknown History (Promiseb topical cream) Exam Airway Mallampati Class: III TM Dist: >3cm Neck ROM: Full Assessment and Plan Assessment Anesthesia Assessment: Anesthesia Plan Discussed Final Anesthetic Review Family History of Problems with Anesthesia: No History of Problems with Anesthesia: No NPO: Yes ASA Class: II Final Preanesthetic Review: No Changes in Pt Med Stat, Meds/Allgs Chart Reviewed, Consent Obtained/Reviewed and Anes Risks/Benef Reviewed Patient Risk: Intermediate Procedure Risk: Low Anesthetic Plan Anesthetic Plan: GA Disposition: Standard PACU
[2023-09-06] VITALS (8 sets, daily range): BP systolic 107–130; BP diastolic 62–78; PULSE 56–93; RESP 16–18; TEMP 36.6–37.1; O2SAT 97–100; BMI 20.2
--- NOTE | ~2023-09-06 | MM_ITS ---
EXAMINATION: NEEDLE LOCALIZATION SPECIMEN FROM THE RIGHT BREAST CLINICAL INFORMATION: DCIS, grade 1. COMPARISON: Right RFID localization 08/28/2023. Stereotactic biopsy right breast 08/12/2023. TECHNIQUE: Single view of the specimen was obtained. FINDINGS: The radiograph of the excised surgical specimen demonstrates the buckle-shaped biopsy clip immediately abutting the RFID chip within the central aspect of the specimen. A few scattered incredibly faint calcifications are noted throughout the more central specimen, none which approach the specimen margins to any significant degree. MM/MM surgical specimen IMPRESSION: Satisfactory excision of the targeted lesion. These findings were communicated to the surgeon in the OR at the time of specimen radiography.
[2023-09-06 11:36] LABS: UPreg QC Valid YES; Urine Pregnancy NEGATIVE (NEGATIVE)
[2023-09-06] MEDS: Lactated Ringers 1,000 ML 100 ML IVCONT (11:46)
--- NOTE | 2023-09-06 13:24 | MHC.SHP ---
Pre-Procedural Eval Section A - 24 Hr Update-Section A only Date of Service: 09/06/23 The patient is an INPATIENT: No Changes since office visit: No Cold of Flu in the past 2 weeks, No New Medical Problems, No Changes in Medication and No Patient answered all questions The patient has been examined within 24 hours of the surgical procedure. The History & Physical has been completed within 30 days and I have reviewed it.: Yes Section B - Complete if H&P > 30 days Chief Complaint: Intraductal carcinoma in situ of unspecified breas Allergies: Allergies Allergy/AdvReac Type Severity Reaction Status Date / Time codeine Allergy Intermediate Vomiting Verified 09/06/23 11:41 fentanyl Allergy Intermediate Vomiting Verified 09/06/23 11:41 Sulfa (Sulfonamide Allergy Intermediate Shakiness Verified 09/06/23 11:41 Antibiotics) Plan I have reviewed the history and physical and performed a pertinent physical examination on my patient. No changes have occurred unless specified. Time Spent With Patient Time: Total time managing care of this patient today ____ minutes.
--- NOTE | 2023-09-06 15:05 | P.OP_ITS ---
Operative Note Operative Note Date of Service: 09/06/23 Narrative: Preop diagnosis: DCIS, right breast Postop diagnosis: The same Procedure: Lumpectomy, right breast with the Hologic localizer Surgeon: Praveen Reddy MD assistant auto center manager: HUGH Mckinnon The patient is a 47-year-old female with a recently diagnosed DCIS on stereotactic biopsy. She understood the technique of lumpectomy. She understood she will require radiation for the breast to complete treatment. She was aware of the risks, benefits, and alternatives. She was brought to the operating room. She was placed supine under general anesthesia via laryngeal mask airway. The right breast area was prepped and draped in the usual sterile fashion. A surgical time-out was done. The patient received cefazolin 2 g IV preoperatively. The biopsy site was seen on the upper part of the breast. I had used the Hologic localizer and this was exactly where the shortest distance was too the RFID clip. I therefore made an incision along this recent biopsy site using blade 15 after infiltration with lidocaine 1%. This incision was carried down through the full-thickness of the skin and subcutaneous fat with electrocautery. We then deepened the incision, periodically checking the location of the clip Hologic localizer to make sure that we were excising adequate surrounding the clip. We used the curved Faulkner scissors to circumferentially dissect around this area of the clip using the Hologic localizer as a guide. Eventually, we are able to achieve circumferential dissection to separate the entire specimen and delivered this. I marked the central and superior aspects with sutures for orientation I proceeded to do re-ray in the operating room. It was confirmed that the RF ID clip as well as the previous biopsy clip were within the specimen. We sent the specimen for immediate gross exam. I actually reviewed the specimen with the pathologist. It appeared that we had good margins and that there were no other lesions site of the biopsy site. We therefore proceeded to ensure hemostasis. I cauterized all oozing areas. We irrigated. Once hemostasis was confirmed, the deep breast tissues were reapposed with Polysorb 3-0 interrupted sutures. Skin closure was achieved with Polysorb 4-0 subcuticular running stitch The area was infiltrated with Marcaine 0.5% for postop analgesia. Dressings were applied. The procedure was completed The patient tolerated the procedure well. There were no immediate complications. Initial and final counts of sponges and instruments were correct. Estimated blood loss was about 40 cc The patient was extubated without difficulty and transferred to the recovery room with stable vital signs.
== END 2023-09-06 16:30 | disposition home or self-care (01) ==
PROVIDERS: Nurse Practitioner; PCP Internal Medicine; Visit Provider Surgery
PROC: (CPT 19301; principal; 2023-09-06 13:10)
DX: D05.11 Intraductal carcinoma in situ of right breast (principal)
CPT/HCPCS: 19301; 81025; 88307; 88329; J0131; J0690; J1100; J1170; J1596; J1885; J2250; J2405; J2704; J2795; J3010

== ENCOUNTER → 2023-09-06 11:12 | Outpatient (BNV) | payer OTHER, SELFPAY | PROVIDERS: PCP Internal Medicine; Visit Provider Surgery | DX: D05.11 Intraductal carcinoma in situ of right breast (principal) | CPT/HCPCS: 19301 ==

== ENCOUNTER 2023-09-19 10:41 | Outpatient (AMB) | payer OTHER, SELFPAY ==
--- NOTE | 2023-09-19 10:42 | MHC.OFFVIS ---
Intake Vital Signs 09/19/23 10:47 Weight 109 lb BP 111/61 Blood Pressure Location Rt brachial Position Sitting Pulse 82 Intake Visit Reasons: S/P Rt breast lumpectomy w/seed Intake Note: This patient presents for a post-op assessment status post right breast lumpectomy with seed. Patient c/o; reports no complaints at this time. 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 She tolerated the procedure well. She currently denies significant complaints. [facility] Medical History DCIS (ductal carcinoma in situ) of breast Breast calcification, right Family history of ovarian cancer Family history of malignant neoplasm of breast Dysmenorrhea Skin rash ADD (attention deficit disorder) Hearing loss History of anxiety Seborrheic dermatitis Surgical History History of mandibular surgery History of placement of ear tubes Family History Mother Ovarian cancer Maternal Aunt History of breast cancer Family/Other History of breast cancer Social History Household Members: None Housing: House Alcohol intake: current Alcohol intake frequency: holidays/special occasions only Patient Tobacco Use Status: Never used Tobacco Current occupational status: disabled 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 Sexual orientation: Straight/Heterosexual Gender identity: Female Female Reproductive History Menstrual Age of Menarche: 11 Review of Systems Const Denies chills and Denies fever(s) Card Denies chest pain, Denies dyspnea and Denies dyspnea on exertion Resp Denies cough, Denies dyspnea and Denies dyspnea on exertion GI Denies hematochezia and Denies change in bowel habits Denies hematuria Musc Denies back pain and Denies limited range of motion Neuro Denies focal weakness and Denies convulsions Psych Denies depression and Denies mood swings Physical Exam Const General: comfortable and no acute distress Chest Other: Right breast lumpectomy site is well healed, not infected no cellulitis Assessment & Plan Assessment & Plan (1) DCIS (ductal carcinoma in situ) of breast: Code(s): D05.10 - Intraductal carcinoma in situ of unspecified breast Plan: Status post lumpectomy with Hologic localization. Her path report shows DCIS without any invasive component. Margins are adequate. Her incision is well healed. She is to undergo radiation to complete treatment. She is to continue with regular yearly mammograms which she alternates with MRI in between mammograms because of her family history of ovarian cancer.. She was reminded to follow-up with Oncology. I will see her again in the office in about 6 months. Coding Level of Care Code Global (05265) Diagnoses DCIS (ductal carcinoma in situ) of breast D05.10
[2023-09-19 10:47] VITALS: BP 111/61; PULSE 82
== END 2023-09-19 10:55 | disposition home or self-care (01) ==
PROVIDERS: PCP Internal Medicine; Visit Provider Surgery
DX: D05.10 Intraductal carcinoma in situ of unspecified breast (principal)
CPT/HCPCS: 99024

== ENCOUNTER → 2023-09-19 10:41 | Outpatient (BNVA) | payer OTHER, SELFPAY | PROVIDERS: PCP Internal Medicine; Visit Provider Surgery | DX: Z48.3 Aftercare following surgery for neoplasm (principal); D05.11 Intraductal carcinoma in situ of right breast | CPT/HCPCS: 99212 ==

== ENCOUNTER 2023-10-03 13:55 | Outpatient (REF) | payer OTHER, SELFPAY ==
--- NOTE | ~2023-10-03 | MM_ITS ---
EXAMINATION: BONE DENSITOMETRY CLINICAL INDICATION: DCIS/antiestrogen therapy. COMPARISON: This is the patient's baseline examination. TECHNIQUE: Using a [employer] DXA System (software version: 13.1) manufactured by [employer], dual-energy x-ray absorptiometry was performed of the lumbar spine and left hip. The images are of good technical quality. Based on ISCD (International Society for Clinical Densitometry) standards of reporting, Z-scores instead of T-scores are reported in this premenopausal woman. Summary results are attached. FINDINGS: AP SPINE L1-L4: BMD 0.808 g/cm2, T-score -3.1, Z-score -2.4, Z-score below expected range for age. LEFT FEMUR, NECK: BMD 0.584 g/cm2, T-score -3.3, Z-score -2.2, Z-score below expected range for age. LEFT FEMUR, TOTAL: BMD 0.539 g/cm2, T-score -3.7, Z-score -3.0, Z-score below expected range for age. IDENTIFIED RISK FACTORS: None listed. HISTORY OF FRACTURE: None listed. MEDICATIONS: ERT/SERMS. MM/XR DEXA axial skeleton IMPRESSION: 1. DIAGNOSIS: Based on the lowest Z-score value of -3.0 in the total femur, the patient's bone density is below the expected range for age. 2. 10-YEAR FRACTURE RISK PREDICTION, FRAX: Major osteoporotic fracture (clinical spine, forearm, hip or shoulder) 8.1%. Hip fracture 3.8%. 3. Treatment Recommendations: NOF guidelines recommend consideration for treatment in postmenopausal women and men age 50 and older presenting with the following: -A hip or vertebral (clinical or morphometric) fracture. -T-score less than or equal to -2.5 at the femoral neck or spine after appropriate evaluation to exclude secondary causes. -Low bone mass at the hip or spine and a 10-year fracture probability by FRAX of greater than or equal to 3% for hip fracture or greater than or equal to 20% for major osteoporotic fracture based on the [place] adapted WHO algorithm. 4. Other Recommendations: All treatment decisions require clinical judgment and consideration of individual patient factors, including patient preferences, comorbidities, previous drug use, risk factors not captured in the FRAX model (e.g. frailty, falls, vitamin D deficiency, increased bone turnover, interval significant decline in bone density) and possible under or overestimation of fracture risk by FRAX. Additional medical evaluation for secondary cause of low bone mineral density may be appropriate. FUTURE SCAN RECOMMENDATION: People with diagnosed cases of osteoporosis or at high risk for fracture should have regular bone mineral density tests. For patients eligible for Medicare, routine testing is allowed once every 2 years. The testing frequency can be increased to one year for patients who have rapidly progressing disease, those who are receiving or discontinuing medical therapy to restore bone mass, or have additional risk factors.
== END 2023-10-03 13:56 | disposition home or self-care (01) ==
LOC: HO.MAMMO 13:55
PROVIDERS: PCP Internal Medicine; Visit Provider Internal Medicine Medical Oncology
DX: Z13.820 Encounter for screening for osteoporosis (principal); D05.10 Intraductal carcinoma in situ of unspecified breast
CPT/HCPCS: 77080

== ENCOUNTER 2023-12-30 10:58 | Outpatient (REF) | payer OTHER, SELFPAY ==
--- NOTE | ~2023-12-30 | MR_ITS ---
EXAMINATION: MR BREAST WITHOUT AND WITH CONTRAST, BILATERAL CLINICAL INFORMATION: High-risk screening. Right breast cancer upper inner quadrant. COMPARISON: Screening mammography 05/08/2023 and subsequent diagnostic imaging. TECHNIQUE: Imaging was performed with a dedicated breast coil. Prior to the administration of contrast, bilateral axial T1- and bilateral axial T2-weighted sequences were obtained. After the uneventful administration of?5 mL of Gadavist, dynamic contrast-enhanced VIBRANT series through the breasts in the axial plane were performed. Subtracted images were performed and reviewed. A delayed sagittal sequence through both breasts was acquired. Additionally, CAD post-processing, including maximum intensity projections, 3-D reconstructions and kinetic analysis, were performed an independent workstation and reviewed by the interpreting radiologist is a portion of this exam. FINDINGS: The breasts are comprised of heterogeneously dense fibroglandular parenchyma. Mild background enhancement. Some motion artifact noted. LEFT BREAST: A 3 mm focus of nonmass enhancement at 10 o'clock (series 100 image 53/101), 6.5 cm from the nipple. Focus is T2 dark with predominately type I progressive enhancement kinetics. RIGHT BREAST: A 3 mm focus at 8 o'clock (series 100 image 70/101), 9 cm from the nipple. Focus is T2 isointense with mixed enhancement kinetics. There is significant architectural distortion and Micra metallic susceptibility artifact in the right upper inner quadrant, site of lumpectomy for breast cancer. No abnormal associated enhancement. Smaller similar foci are scattered throughout both breasts. There is no suspicious internal mammary chain or axillary adenopathy. Limited views of the chest and abdomen are unremarkable. MR/MR breast BI wo/w con IMPRESSION: Small similar foci of nonmass enhancement bilaterally. Multiple similar findings are probably benign. Follow with breast MRI in 12 months. ASSESSMENT: LEFT BREAST: BI-RADS 3, probably benign finding. RIGHT BREAST: BI-RADS 3, probably benign finding. RECOMMENDATIONS: A repeat bilateral breast MRI in 12 months.
[2023-12-30] MEDS: gadobutroL 7.5 ML VIAL IVPUSH (12:00)
== END 2023-12-30 10:59 | disposition home or self-care (01) ==
LOC: HO.MRI 10:58
PROVIDERS: PCP Internal Medicine; Visit Provider Surgery
DX: Z12.39 Encounter for other screening for malignant neoplasm of breast (principal); R92.8 Other abnormal and inconclusive findings on diagnostic imaging of breast; Z80.3 Family history of malignant neoplasm of breast; Z80.41 Family history of malignant neoplasm of ovary
CPT/HCPCS: 77049; A9585

== ENCOUNTER 2024-03-09 10:55 | Outpatient (AMB) | payer OTHER, SELFPAY ==
[2024-03-09 10:56] VITALS: BMI 19.8
--- NOTE | 2024-03-09 10:56 | MHC.OFFVIS ---
Vital Signs 03/09/24 10:56 Height 5 ft 1 in Weight 105 lb BMI 19.8 Intake Visit Reasons: Breast exam, 6 month follow up Intake Note: This patient presents for six month follow-up breast exam. Pt c/o; reports no breast complaints. 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 She currently denies significant complaints She had an MRI done last December, showing foci of non-mass enhancement bilaterally likely to be benign findings. A repeat MRI has been recommended within 1 year. She has completed radiation for the right breast last October,. She is currently on tamoxifen. [facility] Medical History (Updated 03/09/24 @ 10:58 by Praveen Reddy MD) History of ductal carcinoma in situ (DCIS) of breast DCIS (ductal carcinoma in situ) of breast Breast calcification, right Family history of ovarian cancer Family history of malignant neoplasm of breast Dysmenorrhea Skin rash ADD (attention deficit disorder) Hearing loss History of anxiety Seborrheic dermatitis Surgical History History of lumpectomy of right breast History of mandibular surgery History of placement of ear tubes Family History Mother Ovarian cancer Maternal Aunt History of breast cancer Family/Other History of breast cancer Social History Household Members: None Housing: House Alcohol intake: current Alcohol intake frequency: holidays/special occasions only Patient Tobacco Use Status: Never used Tobacco Current occupational status: disabled 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 Sexual orientation: Straight/Heterosexual Gender identity: Female Female Reproductive History Menstrual Age of Menarche: 11 Review of Systems Const Denies chills and Denies fever(s) Card Denies chest pain, Denies dyspnea and Denies dyspnea on exertion Resp Denies cough, Denies dyspnea and Denies dyspnea on exertion GI Denies hematochezia and Denies change in bowel habits Denies hematuria Musc Denies back pain and Denies limited range of motion Neuro Denies focal weakness and Denies convulsions Psych Denies depression and Denies mood swings Physical Exam Const General: comfortable and no acute distress Orientation/consciousness: patient oriented x3 Neck Neck: Yes no lymphadenopathy Chest Other: No palpable breast masses, no axillary lymphadenopathy Resp Auscultation: clear to auscultation bilaterally Cardio Rhythm: regular rhythm GI Palpation (GI): Soft to palpation, nontender and no guarding Neuro General: patient oriented x3 Assessment & Plan Assessment & Plan (1) History of ductal carcinoma in situ (DCIS) of breast: Code(s): Z86.000 - Personal history of in-situ neoplasm of breast Category: Medical Plan: Status post lumpectomy. She is doing very well. There were no palpable masses on current examination. An MRI had been done last December, for high risk screening. There were non enhancing masses in both breasts that appeared to be benign. A follow-up MRI should be done within 1 year. She should have a mammogram this June,. In that way, she will have an imaging study every 6 months. I explained to her family this plan and they are comfortable. I will see her in the office in about 6 months after her mammogram. Coding Level of Care Code Est Pt Level 3 (79721) Diagnoses History of ductal carcinoma in situ (DCIS) of breast Z86.000
== END 2024-03-09 11:08 | disposition home or self-care (01) ==
PROVIDERS: PCP Internal Medicine; Visit Provider Surgery
DX: Z86.000 Personal history of in-situ neoplasm of breast (principal)
CPT/HCPCS: 99213

== ENCOUNTER → 2024-03-09 10:55 | Outpatient (BNVA) | payer OTHER, SELFPAY | PROVIDERS: PCP Internal Medicine; Visit Provider Surgery | DX: Z86.000 Personal history of in-situ neoplasm of breast (principal) | CPT/HCPCS: 99212 ==

== ENCOUNTER 2024-03-25 10:02 | Outpatient (AMB) | payer OTHER, SELFPAY ==
--- NOTE | 2024-03-25 10:03 | MHC.OFFVIS ---
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 Doing well with no concerns. Currently on Tamoxifen. Completed radiation, s/p right breast DCIS. She tries to eat healthy and stays active with exercise. 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 Never has been sexually active. She denies vaginal itching and irritation. Last pap smear 2020, negative. Mammogram: 2023. BRCA negative. [facility] Medical History History of ductal carcinoma in situ (DCIS) of breast DCIS (ductal carcinoma in situ) of breast Breast calcification, right Family history of ovarian cancer Family history of malignant neoplasm of breast Dysmenorrhea Skin rash ADD (attention deficit disorder) Hearing loss History of anxiety Seborrheic dermatitis Surgical History (Updated 03/25/24 @ 10:09 by MILDRED Turner) H/O shoulder surgery History of lumpectomy of right breast History of mandibular surgery History of placement of ear tubes Family History Mother Ovarian cancer Maternal Aunt History of breast cancer Family/Other History of breast cancer Social History (Updated 03/25/24 @ 10:12 by MILDRED Turner) Household Members: None Housing: House Alcohol intake: never Patient Tobacco Use Status: Never used Tobacco Current occupational status: disabled 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 Sexual orientation: Straight/Heterosexual Gender identity: Female Female Reproductive History Menstrual Age of Menarche: 11 Date of last menstrual period: 02/25/24 Total pregnancies: 0 Date of last pap smear: 05/16/21 (neg pap and hpv) Date of Mammogram: 05/08/23 (Birad 0) History of abnormal mammogram: Yes (2023 ductal carcinoma in situ) Date of last Bone Density Screenin10/03/23 Review of Systems Const All systems reviewed & are unremarkable except as noted in HPI and below Reports as per HPI Eyes Reports no additional complaints ENT Reports no additional complaints Card Reports no additional complaints Resp Reports no additional complaints GI Reports as per HPI and Reports no additional complaints Reports as per HPI Musc Reports no additional complaints Skin/Breast Reports as per HPI Neuro Reports no additional complaints Psych Reports no additional complaints Endo Reports no additional complaints Eliseo/Lymph Reports no additional complaints Aller/Immun Reports no additional complaints Physical Exam Vital Signs: Last Vital Signs BP 110/70 03/25/24 10:04 BMI result Body Mass Index 19.8 Const General: cooperative, healthy appearing, no acute distress, well developed and alert Orientation/consciousness: patient oriented x3 HEENT Head: Yes normal to inspection Eyes General: appearance normal, both eyes and all related structures Neck Neck: Yes normal visual inspection Thyroid: Thyroid normal Chest Other: right breast- scar, edema Chest palpation & inspection: normal inspection of the chest and other (no puckering, dimpling, peau de orange, retraction, discharge, masses) Breast/axilla inspection: normal inspection of the breasts Breast/axilla palpation: normal palpation of the breasts Resp Effort & Inspection: normal respiratory effort GI Inspection: Yes normal to inspection Palpation (GI): Soft to palpation Rectal Exam - Female: deferred Other: Smallest Castro utilized. General: Yes bladder normal to palpation External Female Exam: normal external appearance and normal appearance of the urethra Speculum Exam - Vagina: normal appearance of the vagina, normal palpation, normal vaginal discharge and other (Narrow canal) Speculum Exam - Cervix: normal appearance of the cervix and normal palpation Bimanual exam- vagina & uterus: normal bimanual exam, normal palpation, uterine size normal, bladder normal to palpation, normal palpation and non-tender Bimanual Exam- Adnexa, other: no masses Skin General skin exam: no rashes or lesions noted Rashes: no rashes Neuro General: patient oriented x3 Cognition (Neuro): normal cognition Extrem General: Yes normal to inspection Psych Attitude: cooperative Thought process: Normal thought process present Assessment & Plan Assessment & Plan (1) Encounter for well woman exam with routine gynecological exam: Code(s): Z01.419 - Encounter for gynecological examination (general) (routine) without abnormal findings Category: Medical Plan Discussed: Current recommendations for pap smears per ASCCP guidelines. Breast awareness and periodic breast exams. Follow up with breast surgeons for monitoring per recommendation. Maintain a healthy lifestyle including a well balanced diet and routine exercise. Monitor menstrual cycles, report any unscheduled bleeding, bleeding episodes <24 days apart or heavy/prolonged menstrual bleeding. Call the office for a follow up for any concerns. Menopause diagnosis is after 1 year of skipping cycles, full 12 months. Colonoscopy >45, or at risk sooner. Follow up with PCP as she has requested Cologuard and has a not heard back. Patient verbalizes understanding and agrees to the plan of care. She was given opportunity to ask questions and all questions were answered to the best of my ability. 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 This note is constructed using voice recognition software. While every effort has been made to ensure accuracy, transportation operations manager errors may have been included. Coding Level of Care Code Est Pt Prev Care 40-64y(04863) Diagnoses Encounter for well woman exam with routine gynecological exam Z01.419
[2024-03-25 10:04] VITALS: BP 110/70; BMI 19.8
== END 2024-03-25 10:39 | disposition home or self-care (01) ==
PROVIDERS: PCP Internal Medicine; Visit Provider Advanced Practice Midwife
DX: Z01.419 Encounter for gynecological examination (general) (routine) without abnormal findings (principal)
CPT/HCPCS: 99396

== ENCOUNTER → 2024-03-25 10:02 | Outpatient (BNVA) | payer OTHER, SELFPAY | PROVIDERS: PCP Internal Medicine; Visit Provider Advanced Practice Midwife | DX: Z01.419 Encounter for gynecological examination (general) (routine) without abnormal findings (principal) | CPT/HCPCS: 99396 ==

== ENCOUNTER → 2024-07-09 09:15 | Outpatient (BNV) | payer OTHER, SELFPAY | PROVIDERS: PCP Internal Medicine; Visit Provider Internal Medicine | DX: D05.11 Intraductal carcinoma in situ of right breast (principal) | CPT/HCPCS: 77062; 77066 ==

== ENCOUNTER 2024-07-09 09:17 | Outpatient (REF) | payer OTHER, SELFPAY ==
--- NOTE | ~2024-07-09 | MM_ITS ---
EXAMINATION: MM DIAGNOSTIC DIGITAL BREAST TOMOSYNTHESIS, BILATERAL CLINICAL INFORMATION: History of right breast cancer 202 status post lumpectomy. COMPARISON: Mammography: Comparison is made with relevant prior exams. TECHNIQUE: Digital breast mammography with tomosynthesis is performed in both the craniocaudal and mediolateral oblique views along with computer-aided detection (CAD). FINDINGS: The breasts are heterogeneously dense, which may obscure small masses (ACR BI-RADS breast composition Category c). Post lumpectomy changes in the right breast are stable. Marker clip in the upper outer breast from previous needle core biopsy. There are no significant masses, abnormal calcifications, or other abnormalities. Results are provided to the patient at time of visit by the technologist. MM/MM tomosynthesis diagnostic BI IMPRESSION: No mammographic evidence of malignancy. Status post right lumpectomy changes. ASSESSMENT: BI-RADS BI-RADS 2 - Benign Findings RECOMMENDATION: 1 year F/U This patient's information was entered into a reminder system with a target due date for their next mammogram. Electronically signed by: Radha Moore DO 07/09/2024 10:08 AM [facility]
== END 2024-07-09 09:18 | disposition home or self-care (01) ==
LOC: HO.MAMMO 09:17
PROVIDERS: PCP Internal Medicine; Visit Provider Internal Medicine
DX: Z86.000 Personal history of in-situ neoplasm of breast (principal)
CPT/HCPCS: 77062; 77066

== ENCOUNTER → 2025-02-15 13:32 | Outpatient (BNV) | payer OTHER, SELFPAY | PROVIDERS: PCP Internal Medicine; Visit Provider Internal Medicine | DX: N63.22 Unspecified lump in the left breast, upper inner quadrant (principal) | CPT/HCPCS: 77049 ==

== ENCOUNTER 2025-02-15 13:40 | Outpatient (REF) | payer OTHER, SELFPAY ==
--- NOTE | ~2025-02-15 | MR_ITS ---
EXAMINATION: MR BREAST WITHOUT AND WITH CONTRAST, BILATERAL CLINICAL INFORMATION: History of right breast DCIS status post lumpectomy 2023. Strong family history of breast cancer high risk screening surveillance. Six-month follow-up MRI recommended from prior MRI breast December 2023. COMPARISON: Comparison is made with relevant prior imaging. TECHNIQUE: MR imaging of the breast was performed using T1, T2 and fat saturated techniques. Dynamic multiphase imaging was also performed after the administration of intravenous gadolinium contrast agent. Computer generated 3D reconstruction and enhancement kinetic analysis was ulitized by the radiologist in the interpretation of this examination. FINDINGS: Breast composition: Heterogeneous fibroglandular breast tissue Background parenchymal enhancement: Moderate LEFT BREAST: The previously seen enhancing area in the central inner left breast 7 to 8 cm from the nipple series 1041 image 72/126 is slightly increased in size from prior today measures 5 x 6 mm previously measured 3 mm. No other suspicious enhancing masses or areas of nonmass enhancement. No axillary or internal mammary adenopathy. RIGHT BREAST: The previously seen 3 mm enhancing focus at 8:00 is no longer seen and likely represented background enhancement. No suspicious enhancing masses or areas of non mass enhancement. No axillary or internal mammary adenopathy. Limited views of the chest and abdomen are unremarkable. MR/MR breast BI wo/w con IMPRESSION: Right: No MRI evidence of malignancy. Left: Previously seen enhancing oval mass central inner left breast 7 to 8 cm from the nipple is increased in size from prior and therefore second look MRI directed ultrasound is recommended at this time. If no ultrasound correlate is seen then MRI guided core needle biopsy is recommended for confirmation. ASSESSMENT: LEFT BREAST: BI-RADS 4 suspicious. RIGHT BREAST: BI-RADS 1-Negative RECOMMENDATIONS: Yearly screening mammography Ultrasound of the left breast at this time, if ultrasound is negative then MRI guided core needle biopsy is recommended. Electronically signed by: Radha Moore DO 02/18/2025 12:48 PM EDT
== END 2025-02-15 13:41 | disposition home or self-care (01) ==
LOC: HO.MRI 13:40
PROVIDERS: PCP Internal Medicine; Visit Provider Internal Medicine Medical Oncology
DX: Z86.000 Personal history of in-situ neoplasm of breast (principal)
CPT/HCPCS: 76377; 77049; A9585

== ENCOUNTER 2025-04-19 10:53 | Outpatient (REF) | payer OTHER, SELFPAY ==
--- NOTE | ~2025-04-19 | US_ITS ---
EXAMINATION: US DIAGNOSTIC ULTRASOUND BREAST, LEFT CLINICAL INFORMATION: Patient is status post breast MR on February 15, 2025 that described a left breast indicating seen mass in the central inner breast 7 to 8 cm from the nipple, increased in size from prior. MR directed ultrasound was recommended. COMPARISON: Breast MRI on February 15, 2025 FINDINGS: Targeted ultrasound of the left breast was performed at the location of the MR finding. The survey shows a 0.3 x 0.2 x 0.4 cm hypoechoic solid-appearing mass at 10 o'clock position 7 cm from the nipple. No internal vascularity demonstrated with color Doppler evaluation. This is a possible correlate for the MR finding, although not completely sure. Results are discussed with the patient at time of visit. US/US breast LT limited mamm only IMPRESSION: Left breast: 0.4 cm hypoechoic solid-appearing mass at 10 o'clock position 7 cm from the nipple, possible correlate for the MR finding. Ultrasound-guided needle core biopsy with clip placement is recommended. ASSESSMENT: BI-RADS 4 - Suspicious finding RECOMMENDATION: Biopsy recommended This patient's information was entered into a reminder system with a target due date for their next mammogram. Electronically signed by: Page Sosa MD 04/19/2025 01:01 PM EDT
== END 2025-04-19 10:54 | disposition home or self-care (01) ==
LOC: HO.MAMMO 10:53
PROVIDERS: PCP Internal Medicine; Visit Provider Internal Medicine Medical Oncology
DX: N63.22 Unspecified lump in the left breast, upper inner quadrant (principal)
CPT/HCPCS: 76642

== ENCOUNTER → 2025-04-19 11:00 | Outpatient (BNV) | payer OTHER, SELFPAY | PROVIDERS: PCP Internal Medicine; Visit Provider Radiology Body Imaging | DX: N63.22 Unspecified lump in the left breast, upper inner quadrant (principal) | CPT/HCPCS: 76642 ==

== ENCOUNTER 2025-04-20 09:23 | Outpatient (REF) | payer OTHER, SELFPAY ==
--- NOTE | ~2025-04-20 | US_ITS ---
EXAMINATION: US GUIDED NEEDLE CORE BREAST BIOPSY LEFT (scheduled) CLINICAL INFORMATION: Patient is status post MR examination on February 15, 2025, that recommended MR directed ultrasound. Limited ultrasound on April 19, 2025 describes a possible correlate for the MR finding located at 10 o'clock position 7 cm from the nipple. COMPARISON: Breast MRI on February 15, 2025. Limited left breast ultrasound of April 19, 2025. FINDINGS: Proper informed consent is obtained from the patient after discussion of the procedure, potential risks and complications, and alternatives. Patient was given an opportunity for questions. The patient appeared to understand. The patient consented to the procedure and signed the consent form. During the preprocedural scanning, the previously suggested possible MR correlate at 10 o'clock position at 7 cm from the nipple could not be identified with confidence. The local parenchyma was reevaluated, however, there were no suspicious findings or any other finding that could represent a potential correlate for the MR finding. Therefore, at this point, the scheduled ultrasound-guided biopsy was canceled. Results are discussed with the patient at time of visit. Based on the previous MR report from February 15, 2025, an MRI guided needle core biopsy is recommended. This procedure has to be ordered and scheduled by the ordering provider's office. ASSESSMENT: BI-RADS 4 - Suspicious finding RECOMMENDATION: Biopsy recommended Electronically signed by: Page Sosa MD 04/20/2025 12:20 PM EDT
== END 2025-04-20 09:24 | disposition home or self-care (01) ==
LOC: HO.MAMMO 09:23
PROVIDERS: PCP Internal Medicine; Visit Provider Internal Medicine Medical Oncology
DX: N63.20 Unspecified lump in the left breast, unspecified quadrant (principal)
CPT/HCPCS: 19083

== ENCOUNTER → 2025-04-20 09:30 | Outpatient (BNV) | payer OTHER, SELFPAY | PROVIDERS: PCP Internal Medicine; Visit Provider Radiology Body Imaging | DX: N63.22 Unspecified lump in the left breast, upper inner quadrant (principal) | CPT/HCPCS: 19083; 77065 ==

== ENCOUNTER → 2025-05-20 08:30 | Outpatient (BNV) | payer OTHER, SELFPAY | PROVIDERS: PCP Internal Medicine; Visit Provider Internal Medicine | DX: N63.20 Unspecified lump in the left breast, unspecified quadrant (principal); D05.11 Intraductal carcinoma in situ of right breast; Z80.3 Family history of malignant neoplasm of breast | CPT/HCPCS: 19085 ==

== ENCOUNTER 2025-05-20 09:01 | Outpatient (REF) | payer OTHER, SELFPAY ==
--- NOTE | ~2025-05-20 | MR_ITS ---
EXAMINATION: MR GUIDED VACUUM-ASSISTED CORE BIOPSY BREAST, LEFT Cancelled procedure CLINICAL INFORMATION: 49-year-old female with strong family history of breast cancer and ovarian cancer and right breast history of DCIS status post lumpectomy 2023. Oval enhancing mass in the left breast slightly increased from prior MRI here for MRI guided core needle biopsy.. COMPARISON: None available. TECHNIQUE/PROCEDURE: Informed consent was obtained from the patient after discussion of the benefits, risks, and alternatives to biopsy today. Patient confirmed understanding. Opportunity for questions was given. Patient signed consent form. Biopsy is performed under MRI guidance using breast surface coil. Imaging is performed without and with use of gadolinium contrast. [facility] introducer localization system is used with grid. LESION: Enhancing oval mass central inner left breast posterior depth. After initial imaging the patient had shoulder, arm and hand pain/symptoms and could not stay in the original position and removed herself from the position for the biopsy. The biopsy was then cancelled and 6 month follow-up recommended for further evaluation of stability enhancing oval mass central inner left breast.. MR/MR guided breast biopsy LT IMPRESSION: 1. Status post cancelled MRI guided core biopsy left breast . Patient could not tolerate the position within the MRI and was having shoulder arm and hand symptoms/pain. 2. Recommend 6 month follow-up MRI for further evaluation of stability. These findings and recommendations were discussed with the patient. Electronically signed by: Radha Moore DO 05/20/2025 11:45 AM EDT
== END 2025-05-20 09:02 | disposition home or self-care (01) ==
LOC: HO.MRI 09:01
PROVIDERS: PCP Internal Medicine; Visit Provider Internal Medicine Medical Oncology
DX: N63.20 Unspecified lump in the left breast, unspecified quadrant (principal); Z85.3 Personal history of malignant neoplasm of breast; Z80.3 Family history of malignant neoplasm of breast
CPT/HCPCS: 19085; A9585

== ENCOUNTER 2025-05-26 10:11 | Outpatient (AMB) | payer OTHER, SELFPAY ==
--- NOTE | 2025-05-26 10:32 | MHC.OFFVIS ---
Vital Signs 05/26/25 10:43 Height 5 ft 1 in Weight 95 lb 6 oz BMI 18.0 BP 110/80 Blood Pressure Location Rt brachial Position Sitting Intake Visit Reasons: breast mass urgent per nimesh Intake Note: This patient was referred by for an assessment for left breast mass. Pt c/o; left breast mass, denies nipple discharge, denies redness. 05/20/25: Breast Bx MRI 04/20/25: Breast Bx US 04/19/25: Breast US 02/15/25: Breast MRI Decorator Lighting Fixtures Required: No Accompanied by: Self / Same As Patient Allergies codeine Allergy (Intermediate, Verified 05/26/25 10:47) Vomiting fentanyl Allergy (Intermediate, Verified 05/26/25 10:47) Vomiting Sulfa (Sulfonamide Antibiotics) Allergy (Intermediate, Verified 05/26/25 10:47) Shakiness Medication List - Last Reconciled 05/26/25 by Praveen Reddy MD citalopram (Celexa) 10 mg PO DAILY dextroamphetamine-amphetamine 10 mg 1 tab PO DAILY ketoconazole 2% 2 appl topical BID ketoconazole 2% 2 appl topical 2XW tacrolimus 0.1% 0.1 appl topical DAILY tamoxifen 20 mg PO DAILY HPI HPI breast mass urgent per nimesh: Details: [age] year old female with a history of DCIS in the right breast referred for a question of a mass on the left breast. She had an MRI done last January, which shows some slight increase in a previously seen enhancing area of the left breast, about 5-6 mm. This has been seen in the past on previous imaging studies She was sent for an MRI biopsy but she was able to tolerated. Furthermore, repeat imaging shows that the mass was not clearly seen so the biopsy was also canceled She denies any current complaints what her regards to her breast. [facility] Medical History (Updated 05/26/25 @ 11:03 by Praveen Reddy MD) Left breast mass History of ductal carcinoma in situ (DCIS) of breast DCIS (ductal carcinoma in situ) of breast Breast calcification, right Family history of ovarian cancer Family history of malignant neoplasm of breast Dysmenorrhea Skin rash ADD (attention deficit disorder) Hearing loss History of anxiety Seborrheic dermatitis Surgical History H/O shoulder surgery History of lumpectomy of right breast History of mandibular surgery History of placement of ear tubes Family History Mother Ovarian cancer Maternal Aunt History of breast cancer Family/Other History of breast cancer Social History Household Members: None Housing: House Alcohol intake: never Patient Tobacco Use Status: Never used Tobacco Current occupational status: disabled 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 Sexual orientation: Straight/Heterosexual Gender identity: Female Female Reproductive History Menstrual Age of Menarche: 11 Review of Systems Const Denies chills and Denies fever(s) Card Denies chest pain, Denies dyspnea and Denies dyspnea on exertion Resp Denies cough, Denies dyspnea and Denies dyspnea on exertion GI Denies hematochezia and Denies change in bowel habits Denies hematuria Musc Denies back pain and Denies limited range of motion Neuro Denies focal weakness and Denies convulsions Psych Denies depression and Denies mood swings Physical Exam Vital Signs: Last Vital Signs BP 110/80 05/26/25 10:43 BMI result Body Mass Index 18.0 Const General: comfortable and no acute distress Orientation/consciousness: patient oriented x3 Neck Neck: Yes no lymphadenopathy Chest Other: No obvious palpable breast masses, no axillary lymphadenopathy Resp Auscultation: clear to auscultation bilaterally Cardio Rhythm: regular rhythm GI Palpation (GI): Soft to palpation, nontender and no guarding Neuro General: patient oriented x3 Assessment & Plan Assessment & Plan (1) Left breast mass: Code(s): N63.20 - Unspecified lump in the left breast, unspecified quadrant Category: Medical Plan: She has this hyper enhancement of the left breast and an MRI biopsy was attempted last weekk. However, she was unable to tolerate this in view of discomfort with positioning. [facility] She stated that it may be best to repeat the MRI in about 6 months as this was a small growth. I explained this with the patient and she says she would rather go for a follow up MRI instead of repeating the biopsy at this time. Coding Level of Care Code Est Pt Level 3 (88541) Diagnoses Left breast mass N63.20
[2025-05-26 10:43] VITALS: BP 110/80; BMI 18.0
== END 2025-05-26 11:12 | disposition home or self-care (01) ==
LOC: HO.HGS 10:11
PROVIDERS: PCP Internal Medicine; Visit Provider Surgery
DX: N63.20 Unspecified lump in the left breast, unspecified quadrant (principal)
CPT/HCPCS: 99213

== ENCOUNTER → 2025-05-26 10:11 | Outpatient (BNVA) | payer OTHER, SELFPAY | PROVIDERS: PCP Internal Medicine; Visit Provider Surgery | DX: N63.20 Unspecified lump in the left breast, unspecified quadrant (principal) | CPT/HCPCS: 99212 ==

== ENCOUNTER 2025-07-15 08:27 | Outpatient (REF) | payer OTHER, SELFPAY ==
--- NOTE | ~2025-07-15 | MM_ITS ---
EXAMINATION: MM DIAGNOSTIC DIGITAL BREAST TOMOSYNTHESIS, BILATERAL CLINICAL INFORMATION: History of right breast DCIS 2023 status post lumpectomy. Six-month follow-up MRI recommended after failed left breast MRI biopsy attempt. COMPARISON: Mammography: Comparison is made with relevant prior exams. TECHNIQUE: Digital breast mammography with tomosynthesis is performed in both the craniocaudal and mediolateral oblique views along with computer-aided detection (CAD). FINDINGS: The breasts are heterogeneously dense, which may obscure small masses. Right: Postoperative changes the right breast are stable. Marker clip in the upper outer breast. Left: There are no significant masses, abnormal calcifications, or other abnormalities. Results are provided to the patient at time of visit by the technologist. MM/MM tomosynthesis diagnostic BI IMPRESSION: There are no significant changes from prior study. ASSESSMENT: BI-RADS Category 2: Benign RECOMMENDATION: 1 year F/U Recommend six-month follow-up MRI for further evaluation left enhancing mass from prior MRI biopsy which was aborted due to patient movement and discomfort. This patient's information was entered into a reminder system with a target due date for their next mammogram. Electronically signed by: Radha Moore DO 07/15/2025 10:37 AM CORAL
== END 2025-07-15 08:28 | disposition home or self-care (01) ==
LOC: HO.MAMMO 08:27
PROVIDERS: PCP Internal Medicine; Visit Provider Internal Medicine
DX: D05.11 Intraductal carcinoma in situ of right breast (principal)
CPT/HCPCS: 77062; 77066

== ENCOUNTER → 2025-07-15 08:30 | Outpatient (BNV) | payer OTHER, SELFPAY | PROVIDERS: PCP Internal Medicine; Visit Provider Internal Medicine | DX: Z86.000 Personal history of in-situ neoplasm of breast (principal) | CPT/HCPCS: 77062; 77066 ==